=== PATIENT | male | born 1990 | race African-American/Black ===

== ENCOUNTER 2017-03-09 04:24 | Emergency (ER) | payer MEDICAID ==
[~2017-03-09] VITALS: Ht 182.9 cm; Wt 108.9 kg
[~2017-03-09 04:24] MED LIST: CEPHALEXIN500 MG ORAL; IBUPROFEN600 MG ORAL
[2017-03-09 04:43] VITALS: BP 142/83
[2017-03-09] MEDS ORDERED: Norco 5mg/325mg tab ONE (05:04)
[2017-03-09] MEDS ORDERED: HYDROCODON-ACE1 EA15 ORAL (05:12)
[2017-03-09] MEDS ORDERED: AUGMENTIN 875-1 EAC1 ORAL (05:12)
--- NOTE | 2017-03-09 05:12 | Emergency Room Report ---
History of Present Illness General Chief Complaint: Toothache Source: Patient Present Illness [facility] This is a 26-year-old male with no significant past medical history. He presents with chief complaint of severe toothache. Onset about an hour ago. Came on onset. Localized to the left lower second premolar. No swelling. No nausea no vomiting. Pain is 10 out of 10. No trauma. Allergies: Coded Allergies: No Known Allergies (Unverified , 03/22/16) Patient History Past Medical History: see triage record, old chart reviewed Past Surgical History: none Pertinent Family History: none Social History: Denies: drug use Immunizations: other Reviewed Nursing Documentation: PMH: Agreed, PSxH: Agreed Nursing Documentation-PMH Past Medical History: No Stated History Review of Systems Eye: Denies: blurred vision, eye pain ENT: Denies: ear pain, nose congestion, throat swelling Respiratory: Denies: cough, shortness of breath Cardiovascular: Denies: chest pain, palpitations Gastrointestinal: Denies: abdominal pain, diarrhea, nausea, vomiting Musculoskeletal: Denies: back pain, joint pain Skin: Denies: rash Neurological: Denies: headache, numbness Endocrine: Denies: increased thirst, increased urine Hematologic/Lymphatic: Denies: easy bruising All Other Systems: negative except mentioned in HPI Physical Exam Vital Signs Date Time Temp Pulse Resp B/P Pulse Ox O2 Delivery O2 Flow Rate FiO2 03/09/17 04:28 97.9 86 18 142/83 98 Room Air vitals normal Sp02 EP Interpretation: reviewed, normal General Appearance: well appearing, no apparent distress, alert Head: normocephalic, atraumatic Eyes: bilateral eye EOMI, bilateral eye PERRL ENT: hearing grossly normal, normal pharynx, other - Tenderness over the left lower second premolar. There is a cavity with breakage of the tooth. No abscess. No trismus. Neck: full range of motion, supple, no meningismus Respiratory: chest non-tender, lungs clear, normal breath sounds Cardiovascular #1: regular rate, rhythm, no murmur Gastrointestinal: normal bowel sounds, non tender, no mass, no organomegaly, no bruit, non-distended Musculoskeletal: back normal, gait/station normal, normal range of motion Psychiatric: mood/affect normal Skin: warm/dry Procedures Additional Procedure Procedure Narrative Procedure: Dental block Indication: Dental pain Description: I injected 2 mL of 1% lidocaine with epinephrine in today inferior alveolar ridge. Patient had moderate pain relief. Patient tolerated procedure without any complication. Medical Decision Making Diagnostic Impression: Primary Impression: Toothache ER Course Patient with dental pain. No evidence abscess. Patient will need to see a dentist see. Most likely with root canal. Last Vital Signs Date Time Temp Pulse Resp B/P Pulse Ox O2 Delivery O2 Flow Rate FiO2 03/09/17 04:43 97.9 78 18 142/83 98 Room Air Status: improved Disposition: HOME, SELF-CARE Condition: Stable Scripts Hydrocodone/Acetaminophen 5-325* (HYDROCODONE/ACETAMINOPHEN 5-325*) 1 Each Tablet 1 TAB ORAL Q6H Y for For Pain, #20 TAB 0 Refills Prov: DORIS HOLLOWAY M.D. 03/09/17 Amoxicillin/Potassium Clav 875-125* (AUGMENTIN 875-125 TABLET*) 1 Each Tablet 1 TAB ORAL TWICE A DAY, #14 TAB Prov: DORIS HOLLOWAY M.D. 03/09/17 Referrals: [facility]ILL[facility],REFERRING (PCP) Patient Instructions: Dental Pain Additional Instructions: Followup with dentist BETTYE. Return for worsening of symptoms. DORIS HOLLOWAY M.D. Mar 09, 2017 05:12
[2017-03-09] MEDS ORDERED: Norco 5mg/325mg tab ORAL ONE (05:15)
[2017-03-09 05:26] VITALS: BP 142/83
== END 2017-03-09 05:27 | disposition home or self-care (01) ==
LOC: EMR 04:37
DX: K08.89 Other specified disorders of teeth and supporting structures (principal)
CPT/HCPCS: 64402; 99284; Z7502